=== PATIENT | female | born 1990 | race Caucasian/White ===

== ENCOUNTER 2018-12-19 14:53 | Emergency (ER) | payer BC, OTHER ==
[2018-12-19] MEDS ORDERED: traMADol HCl 50 MG TAB ONE (15:17)
[2018-12-19] MEDS ORDERED: diphenhydrAMINE 25 MG CAP ONE (15:17)
[2018-12-19] MEDS ORDERED: Prochlorperazine 10 MG/2 ML VIAL ONE (15:17)
[2018-12-19] MEDS ORDERED: traMADol HCl 50 MG TAB PO SCH (15:30)
[2018-12-19] MEDS ORDERED: diphenhydrAMINE 25 MG CAP PO SCH (15:30)
[2018-12-19] MEDS ORDERED: Prochlorperazine Maleate 10 MG TAB PO SCH (15:30)
--- NOTE | 2018-12-19 20:38 | CT ---
CT OF THE BRAIN WITHOUT CONTRAST: 12/19/18 Comparison is made with a prior study of 08/24/17. There has been no adverse interval change. The ventricles are normal in size with no shift. No intrac ranial bleeding or extra-axial hematoma was seen. There is good merino-white distinction. The calvarium appears normal. The sphenoid sinus and mastoid air cells are clear. IMPRESSION: No acute intracranial finding. POS: HOME
== END 2018-12-19 15:54 | disposition home or self-care (01) ==
LOC: BURERS 14:53
DX: S09.90XA Unspecified injury of head, initial encounter (principal); G43.909 Migraine, unspecified, not intractable, without status migrainosus; W21.05XA Struck by basketball, initial encounter; Y93.67 Activity, basketball; Y99.8 Other external cause status
CPT/HCPCS: 70450; 96372; J0780